=== PATIENT | female | born 1975 | race Caucasian/White ===

== ENCOUNTER 2018-10-11 13:30 | Emergency (ER) | payer OTHER ==
[~2018-10-11] VITALS: Ht 160 cm; Wt 80.3 kg
[2018-10-11 13:42] VITALS: BP 123/90
--- NOTE | 2018-10-11 13:46 | NUR ---
PT BIB SELF WITH C/O COUGH SINCE LAST THREE TO 4 WEEKS. STATES TO HAVE SOME FLAMES WHILE COUGHING, DENIES ANY CHAEST PAIN, SOB, N &V, FEVER. STATES GETS WORSE WHILE TALKING AND WHEN ITS COLD. NO PAST MEDICAL HS, DENIES OF TAKING ANY MEDS AT THIS TIME. ER MD TO SEE THE PT.
--- NOTE | 2018-10-11 13:46 | NUR ---
Patient ambulated to bed 8 with family. RN evaluating patient at bedside.
--- NOTE | 2018-10-11 13:55 | NUR ---
Dr. Gregory evaluating patient at bedside.
[2018-10-11] MEDS ORDERED: hydrOXYzine HCL 25 MG TAB PO ONE (14:00)
[2018-10-11] MEDS ORDERED: DEXAMETHASONE 10 MG/ML VIAL IM ONE (14:00)
[2018-10-11] MEDS ORDERED: cefTRIAXone 1,000 MG in LIDOCAINE 1% ***ER ONLY *** 2.1 ML IM ONE (14:00)
[2018-10-11] MEDS ORDERED: FAMOTIDINE 20 MG TAB PO ONE (14:00)
[2018-10-11] MEDS ORDERED: ALBUTEROL SULFATE/IPRATROPIU 3 ML SOL IH ONE (14:00)
--- NOTE | 2018-10-11 14:10 | NUR ---
RT AT THE BEDSIDE, PROVIDING BREATHING TREATMENT. PT TOLERATED WELL. WILL CONTINUE TO MONITOR PT.
[2018-10-11] MEDS ORDERED: cefTRIAXone 1,000 MG VIAL ONE (14:11)
--- NOTE | 2018-10-11 14:11 | NUR ---
PLACED PT ON HHN TX. PT ABLE TO SPEAK IN FULL SENTENCES WITH NO DISTRESS. BS CLEAR BILATERALLY.
[2018-10-11] MEDS ORDERED: LIDOCAINE MPF 1% - 5 mL VIAL 5 ML ONE (14:14)
[2018-10-11 14:35] VITALS: BP 123/90
--- NOTE | 2018-10-11 14:35 | NUR ---
Patient discharged with v/s stable. Written and verbal after care instructions given and explained. Patient alert, oriented and verbalized understanding of instructions. Ambulatory with steady gait. All questions addressed prior to discharge. ID band removed. Patient advised to follow up with PMD. Rx of PREDNISONE, AZITHROMYCIN, PROMETHAZINE given. Patient educated on indication of medication including possible reaction and side effects. Opportunity to ask questions provided and answered.
== END 2018-10-11 14:35 | disposition home or self-care (01) ==
LOC: MED 13:30
DX: J32.9 Chronic sinusitis, unspecified (principal); J40 Bronchitis, not specified as acute or chronic
CPT/HCPCS: 94640; 96372; 99283; J0696; J1100; J2001; J7620

== ENCOUNTER 2020-05-02 12:58 | Emergency (ER) | payer OTHER ==
[~2020-05-02] VITALS: Ht 157.5 cm; Wt 82.1 kg
[2020-05-02 13:05] VITALS: BP 130/70
--- NOTE | 2020-05-02 13:09 | NUR ---
Pt given urine cup and ambulated to lobby
--- NOTE | 2020-05-02 13:47 | NUR ---
44 y/o female from home c/o burning sensation s/p urination. Denies urinary frequency/hesitency. Denies hematuria. VSS medhx: denies
[2020-05-02 14:32] LABS: APPEARANCE,URINE CLEAR (CLEAR); BILIRUBIN,URINE NEGATIVE (NEGATIVE); BLOOD, URINE TRACE-I (NEGATIVE); COLOR,URINE YELLOW (YELLOW); LEUKOCYTE ESTERASE ,URINE NEGATIVE (NEGATIVE); NITRITE, URINE NEGATIVE (NEGATIVE); UGLUCOSE NEGATIVE (NEGATIVE)
[2020-05-02 14:44] VITALS: BP 130/70
--- NOTE | 2020-05-02 14:47 | NUR ---
Patient discharged with v/s stable. Written and verbal after care instructions given and explained. Patient alert, oriented and verbalized understanding of instructions. Ambulatory with steady gait. All questions addressed prior to discharge. ID band removed. Patient advised to follow up with PMD. Rx of Promethazine DM 6.25mg-15mg/5ml, Azithromycin 250mg given. Patient educated on indication of medication including possible reaction and side effects. Opportunity to ask questions provided and answered.
== END 2020-05-02 14:47 | disposition home or self-care (01) ==
LOC: MED 12:58
DX: J06.9 Acute upper respiratory infection, unspecified (principal); R30.0 Dysuria
CPT/HCPCS: 81003; 81025; 99283

== ENCOUNTER 2020-07-24 17:29 | Emergency (ER) | payer OTHER ==
[~2020-07-24] VITALS: Ht 160 cm; Wt 79.4 kg
[2020-07-24 18:05] VITALS: BP 133/79
--- NOTE | 2020-07-24 18:35 | NUR ---
44 Y/O FEMALE C/O INSECT BITE ON LEFT SHOULDER X3 DAYS AGO. PT DENIES PAIN AT THIS TIME. PT STATES SHE BELIEVED IT WAS A MOSQUITO BUT HAS SPREAD SINCE. DENIES N/V, DENIES FEVER/CHILLS. PT STATED THERE WAS CLEAR DISCHARGE. SHOULDER IS RED, SWOLLEN AND SENSITIVE TO TOUCH. PT PUT PENICILLIN CREAM ON IT. PT IS A/O X4 WITH EVEN AND UNLABORED RESPIRATIONS. DENIES PMH NKA
--- NOTE | 2020-07-24 18:38 | NUR ---
VONNIE MAYO AT BEDSIDE
[2020-07-24] MEDS ORDERED: NAPR-54 PO (18:43)
[2020-07-24] MEDS ORDERED: CEPH500T PO (18:43)
[2020-07-24 18:56] VITALS: BP 133/79
--- NOTE | 2020-07-24 18:58 | NUR ---
Patient discharged with v/s stable. Written and verbal after care instructions given and explained. Patient alert, oriented and verbalized understanding of instructions. Ambulatory with steady gait. All questions addressed prior to discharge. ID band removed. Patient advised to follow up with PMD. Rx of NAPROXEN 500MG TID PO, AND CEPHELAXIN 500MG PO [id number] given. Patient educated on indication of medication including possible reaction and side effects. Opportunity to ask questions provided and answered.
== END 2020-07-24 18:56 | disposition home or self-care (01) ==
LOC: MED 17:29
DX: M71.012 Abscess of bursa, left shoulder (principal); Z79.899 Other long term (current) drug therapy
CPT/HCPCS: 99283

== ENCOUNTER 2021-03-31 19:50 | Emergency (ER) | payer OTHER ==
[~2021-03-31] VITALS: Ht 160 cm; Wt 73.5 kg
[~2021-03-31 19:50] MED LIST: CEPH500T PO; NAPR-54 PO
[2021-03-31 20:05] VITALS: BP 137/92
--- NOTE | 2021-03-31 20:05 | NUR ---
to bed ambulatory
--- NOTE | 2021-03-31 20:28 | NUR ---
DR WILD . NO BAG LOADER ASSESSMENT NEEDED. 45 Y/O F WITH C/O COUGH THAT STARTED IN THE MIDDLE OF THE WEEK. PT STATES ITS A LITTLE PHLEGM WITH ALOT OD SCRATCHINESS. PT DENIES FEVER BUT STATES SHE DOES HAVE A HEADACHE. PT IS NOT COVID OR FLU VACCINATED BUT TAKE VITAMINS TO SUPPORT HER IMMUNE SYSTEM.
--- NOTE | 2021-03-31 20:28 | NUR ---
Dr. Vides examining patient.
[2021-03-31] MEDS ORDERED: PROM118S5 PO (20:43)
[2021-03-31] MEDS ORDERED: AZIT250T4 PO (20:44)
[2021-03-31 20:58] VITALS: BP 137/92
--- NOTE | 2021-03-31 21:00 | NUR ---
Patient discharged with v/s stable. Written and verbal after care instructions given and explained. Patient alert, oriented and verbalized understanding of instructions. Ambulatory with steady gait. All questions addressed prior to discharge. ID band removed. Patient advised to follow up with PMD. Rx of ZITHROMAX Z PACK AND PROMETHAZINE DM SYRUP given. Opportunity to ask questions provided and answered.
== END 2021-03-31 21:00 | disposition home or self-care (01) ==
LOC: MED 19:50
DX: R05.9 Cough, unspecified (principal); Z79.2 Long term (current) use of antibiotics; Z79.899 Other long term (current) drug therapy; Z79.1 Long term (current) use of non-steroidal anti-inflammatories (NSAID)
CPT/HCPCS: 99283

== ENCOUNTER 2021-05-09 23:34 | Emergency (ER) | payer OTHER ==
[~2021-05-09] VITALS: Ht 160 cm; Wt 79.4 kg
[~2021-05-09 23:34] MED LIST changes: +AZIT250T4 PO; +PROM118S5 PO
[2021-05-10 00:04] VITALS: BP 141/84
--- NOTE | 2021-05-10 00:11 | NUR ---
PATIENT TO THE BATHROOM FOR URINE COLLECTION AND PATIENT SENT TO [facility]
--- NOTE | 2021-05-10 00:24 | NUR ---
Dr. Angelo examining patient.
[2021-05-10] MEDS ORDERED: NITR100C7 PO (00:36)
[2021-05-10] MEDS ORDERED: PHEN-1877 PO (00:36)
[2021-05-10 00:39] VITALS: BP 141/84
--- NOTE | 2021-05-10 00:39 | NUR ---
Patient discharged with v/s stable. Written and verbal after care instructions given and explained BY DR. WELLER Patient alert, oriented and verbalized understanding of instructions. Ambulatory with steady gait. All questions addressed prior to discharge. ID band removed. Patient advised to follow up with PMD. Rx of PYRIDIUM given. Patient educated on indication of medication including possible reaction and side effects. Opportunity to ask questions provided and answered.
== END 2021-05-10 00:39 | disposition home or self-care (01) ==
LOC: MED 23:34
DX: N39.0 Urinary tract infection, site not specified (principal)
CPT/HCPCS: 81002; 81025; 99283